=== PATIENT | female | born 1985 ===

== ENCOUNTER 2018-12-08 14:40 | Emergency (ER) | payer SELFPAY ==
[2018-12-08 14:42] VITALS: BMI 27.6
[2018-12-08 14:47] VITALS: RESP 18
[2018-12-08] MEDS ORDERED: Sodium Chloride 0.9% 1,000 ML IV STA (15:19)
--- NOTE | 2018-12-08 15:31 | ED PDOC ---
Arrival/HPI - General Historian: Patient - History of Present Illness Narrative History of Present Illness (Text): 12/08/18 15:47 33 y/o female with PMH of hysterectomy presents to the ED c/o left flank pain x 1 day. Pain is sharp and radiates into the left side of the abdomen. Associated nausea. Has not taken any medication for pain. Denies fever, chills, diarrhea, constipation, vomiting, chest pain, SOB, urinary symptoms, vaginal bleeding, vaginal discharge, or any other associated symptoms. <Ria Clark - Last Filed: 12/08/18 16:46> <Kit Dominguez - Last Filed: 12/09/18 07:53> - General Chief Complaint: Back Pain Time Seen by Provider: 12/08/18 14:57 Past Medical History - Infectious Disease Hx of Infectious Diseases: None - Psychiatric Hx Substance Use: No - Surgical History Hx Hysterectomy: Yes - Anesthesia Hx Anesthesia Reactions: No Hx Malignant Hyperthermia: No <Ria Clark - Last Filed: 12/08/18 16:46> Family/Social History Smoking Status: Never Smoked Hx Alcohol Use: Yes Frequency of alcohol use: Socially Hx Substance Use: No <Ria Clark - Last Filed: 12/08/18 16:46> Family/Social History: Unknown Family HX <Kit Dominguez - Last Filed: 12/09/18 07:53> Allergies/Home Meds <Ria Clark - Last Filed: 12/08/18 16:46> <Kit Dominguez - Last Filed: 12/09/18 07:53> Allergies/Adverse Reactions: Allergies No Known Allergies Allergy (Verified 12/08/18 14:42) Physical Exam Vital Signs Reviewed: Yes Vital Signs Temp Pulse Resp BP Pulse Ox 12/08/18 14:40 98 F 70 18 105/68 100 Temperature: Afebrile Blood Pressure: Normal Pulse: Regular Respiratory Rate: Normal Appearance: Positive for: Well-Appearing, Non-Toxic, Comfortable Pain Distress: None Mental Status: Positive for: Alert and Oriented X 3 - Systems Exam Head: Present: Atraumatic, Normocephalic Pupils: Present: PERRL Extroacular Muscles: Present: EOMI Conjunctiva: Present: Normal Mouth: Present: Moist Mucous Membranes Neck: Present: Normal Range of Motion. No: Meningeal Signs Respiratory/Chest: Present: Clear to Auscultation, Good Air Exchange. No: Respiratory Distress, Accessory Muscle Use Cardiovascular: Present: Regular Rate and Rhythm, Normal S1, S2, Peripheal Pulses Present Abdomen: Present: Tenderness (LLQ), Normal Bowel Sounds. No: Distention, Peritoneal Signs, Rebound, Guarding Back: Present: Normal Inspection, CVA Tenderness (left side) Upper Extremity: Present: Normal Inspection, Normal ROM, NORMAL PULSES, Neurovascularly Intact, Capillary Refill < 2s. No: Cyanosis, Edema, Temperature Abnormalties Lower Extremity: Present: Normal Inspection, NORMAL PULSES, Normal ROM, Neurovascularly Intact, Capillary Refill < 2 s. No: Edema, CALF TENDERNESS, Tenderness, Swelling, Temperature Abnormalties Neurological: Present: GCS=15, CN II-XII Intact, Speech Normal, Motor Func Grossly Intact, Normal Sensory Function, Gait Normal Skin: Present: Warm, Dry, Normal Color. No: Rashes Psychiatric: Present: Alert, Oriented x 3, Normal Insight, Normal Concentration, Normal Affect, Normal Mood <Ria Clark - Last Filed: 12/08/18 16:46> Vital Signs Temp Pulse Resp BP Pulse Ox 12/08/18 16:40 98.3 F 78 18 123/78 98 12/08/18 14:40 98 F 70 18 105/68 100 <Kit Dominguez - Last Filed: 12/09/18 07:53> Medical Decision Making ED Course and Treatment: Initial Plan: * CBC, CMP * Lipase * Coags * UA * CT Abd/Pelvis without IV contrast * IVF * Toradol * Zofran 16:20 On re-evaluation, patient reports improvement in pain with medication. 16:49 CT unremarkable. Patient reports complete resolution of pain. Advised gynecolo gical, GI, and PMD followup. - Lab Interpretations Lab Results: 12/08/18 15:15 12/08/18 15:15 Lab Results 12/08/18 15:15: Sodium 138, Potassium 3.7, Chloride 103, Carbon Dioxide 24, Anion Gap 15, BUN 9, Creatinine 0.6 L, Est GFR ( Amer) > 60, Est GFR (Non-Af Amer) > 60, Random Glucose 103, Calcium 9.2, Total Bilirubin 1.0, AST 33, ALT 19, Alkaline Phosphatase 62, Total Protein 7.9, Albumin 4.5, Globulin 3.4, Albumin/Globulin Ratio 1.3 12/08/18 15:15: Urine Color Light yellow, Urine Appearance Sl cloudy, Urine pH 8.5, Ur Specific [place] 1.015, Urine Protein 30 H, Urine Glucose (UA) Negative, Urine Ketones 15 H, Urine Blood Negative, Urine Nitrate Negative, Urine Bilirubin Negative, Urine Urobilinogen 1.0 H, Ur Leukocyte Esterase Negative, Urine RBC 1 - 3 H, Urine WBC 0 - 2, Ur Epithelial Cells 4 - 5, Amorphous Sediment Small, Urine Bacteria Large, Urine Other Uyeast, Urine HCG, Qual Negative 12/08/18 15:15: PT 12.4, INR 1.12, APTT 31.8 12/08/18 15:15: WBC 5.6, RBC 4.12, Hgb 12.3, Hct 37.7, MCV 91.5, MCH 29.9, MCHC 32.6, RDW 12.0, Plt Count 264, MPV 10.2, Neut % (Auto) 59.8, Lymph % (Auto) 32.4, [place] % (Auto) 5.2, Eos % (Auto) 2.2, Baso % (Auto) 0.4, Lymph # (Auto) 1.8, [place] # (Auto) 0.3, Eos # (Auto) 0.1, Baso # (Auto) 0.02, Absolute Neuts (auto) 3.33 I have reviewed the lab results: Yes - RAD Interpretation Narrative RAD Interpretations (Text): 12/08/18 16:46 CT Abd/Pelvis: FINDINGS: LOWER THORAX: Unremarkable. LIVER: Unremarkable. No gross lesion or ductal dilatation. GALLBLADDER AND BILE DUCTS: Unremarkable. PANCREAS: Unremarkable. No gross lesion or ductal dilatation. SPLEEN: Unremarkable. ADRENALS: Unremarkable. No mass. KIDNEYS AND URETERS: Unremarkable. No hydronephrosis. No solid mass. VASCULATURE: Unremarkable. No aortic aneurysm. No aortic atherosclerotic calcification or mural plaque present. BOWEL: Unremarkable. No obstruction. No gross mural thickening. APPENDIX: Unremarkable. Normal appendix. PERITONEUM: Unremarkable. No free fluid. No free air. LYMPH NODES: Unremarkable. No enlarged lymph nodes. BLADDER: Unremarkable. REPRODUCTIVE: Unremarkable. BONES: No acute fracture. OTHER FINDINGS: None. IMPRESSION: Unremarkable non contrast enhanced CT of the abdomen and pelvis. No evidence of urolithiasis. Radiology Orders: 12/08/18 15:18 ABD & PELVIS W/O PO OR IV CONT [CT] Stat Split [place] Department Supervisor: Radiologist - Medication Orders Current Medication Orders: Sodium Chloride (Sodium Chloride 0.9%) 1,000 mls @ 999 mls/hr IV .Q1H1M STA Stop: 12/08/18 16:19 Last Admin: 12/08/18 15:28 Dose: 999 mls/hr eMAR Start Stop Document 12/08/18 15:28 EWO (Rec: 12/08/18 15:28 [place] [id number]) Intravenous Solution Start Date 12/08/18 Start Time 15:28 End Date 12/08/18 End time 16:28 Total Infusion Time 60 Discontinued Medications Ketorolac Tromethamine (Toradol) 30 mg IVP STAT STA Stop: 12/08/18 15:19 Last Admin: 12/08/18 15:28 Dose: 30 mg MAR Pain Assessment Document 12/08/18 15:28 [facility] ([facility]08[facility]18 [facility] Pain Reassessment Is this a pain reassessment? No Presence of Pain Presence of Pain Yes Pain Scale Used Protocol: PSCALES Pain Scale Used Numeric Location Left, Right or Bilateral Left Description Description Constant IVP Administration Document 12/08/18 15:28 EWO (Rec: 12/08/18 15:29 [facility] Charges for Administration # of IVP Administrations 1 Ondansetron HCl (Zofran Inj) 4 mg IVP STAT STA Stop: 12/08/18 15:19 Last Admin: 12/08/18 15:28 Dose: 4 mg IVP Administration Document 12/08/18 15:28 EWO (Rec: 12/08/18 15:28 [facility] Charges for Administration # of IVP Administrations 1 <Ria Clark - Last Filed: 12/08/18 16:46> - Lab Interpretations Lab Results: PT 12.4 SECONDS (9.4-12.5) 12/08/18 15:15 INR 1.12 12/08/18 15:15 APTT 31.8 Seconds (26.9-38.3) 12/08/18 15:15 Total Bilirubin 1.0 mg/dL (0.2-1.3) 12/08/18 15:15 AST 33 U/L (14-36) 12/08/18 15:15 ALT 19 U/L (7-56) 12/08/18 15:15 Alkaline Phosphatase 62 U/L (38-126) 12/08/18 15:15 Total Protein 7.9 g/dL (5.8-8.3) 12/08/18 15:15 Albumin 4.5 g/dL (3.0-4.8) 12/08/18 15:15 Globulin 3.4 gm/dL 12/08/18 15:15 Albumin/Globulin Ratio 1.3 (1.1-1.8) 12/08/18 15:15 Urine Color Light yellow (YELLOW) 12/08/18 15:15 Urine Appearance Sl cloudy (CLEAR) 12/08/18 15:15 Urine pH 8.5 (4.7-8.0) 12/08/18 15:15 Ur Specific [place] 1.015 (1.005-1.035) 12/08/18 15:15 Urine Protein 30 mg/dL (<30 mg/dL) H 12/08/18 15:15 Urine Glucose (UA) Negative mg/dL (NEGATIVE) 12/08/18 15:15 Urine Ketones 15 mg/dL (NEGATIVE) H 12/08/18 15:15 Urine Blood Negative (NEGATIVE) 12/08/18 15:15 Urine Nitrate Negative (NEGATIVE) 12/08/18 15:15 Urine Bilirubin Negative (NEGATIVE) 12/08/18 15:15 Urine Urobilinogen 1.0 E.U./dL (<1 E.U./dL) H 12/08/18 15:15 Ur Leukocyte Esterase Negative [place]/uL (NEGATIVE) 12/08/18 15:15 Urine RBC 1 - 3 /hpf (0-2) H 12/08/18 15:15 Urine WBC 0 - 2 /hpf (0-6) 12/08/18 15:15 Ur Epithelial Cells 4 - 5 /hpf (0-5) 12/08/18 15:15 Amorphous Sediment Small /hpf (NONE) 12/08/18 15:15 Urine Bacteria Large /hpf (NONE) 12/08/18 15:15 Urine Other Uyeast /hpf 12/08/18 15:15 Urine HCG, Qual Negative (NEGATIVE) 12/08/18 15:15 Urine HCG, Qual Negative (NEGATIVE) 12/08/18 15:15 - RAD Interpretation Radiology Orders: 12/08/18 15:18 ABD & PELVIS W/O PO OR IV CONT [CT] Stat - Medication Orders Current Medication Orders: Discontinued Medications Sodium Chloride (Sodium Chloride 0.9%) 1,000 mls @ 999 mls/hr IV .Q1H1M STA Stop: 12/08/18 16:19 Last Admin: 12/08/18 15:28 Dose: 999 mls/hr eMAR Start Stop Document 12/08/18 15:28 EW (Rec: 12/08/18 15:28 [facility] Intravenous Solution Start Date 12/08/18 Start Time 15:28 End Date 12/08/18 End time 16:28 Total Infusion Time 60 Ketorolac Tromethamine (Toradol) 30 mg IVP STAT STA Stop: 12/08/18 15: Last Admin: 12/08/18 15:28 Dose: 30 mg MAR Pain Assessment Document 12/08/18 15:28 EW (Rec: 12/08/18 15:29 [facility] Pain Reassessment Is this a pain reassessment? No Presence of Pain Presence of Pain Yes Pain Scale Used Protocol: PSCALES Pain Scale Used Numeric Location Left, Right or Bilateral Left Description Description Constant IVP Administration Document 12/08/18 15:28 EW (Rec: 12/08/18 15:29 [email or web address]) Charges for Administration # of IVP Administrations 1 Ondansetron HCl (Zofran Inj) 4 mg IVP STAT STA Stop: 12/08/18 15:19 Last Admin: 12/08/18 15:28 Dose: 4 mg IVP Administration Document 12/08/18 15:28 EW (Rec: 12/08/18 15:28 [facility]) Charges for Administration # of IVP Administrations 1 <Kit Dominguez - Last Filed: 12/09/18 07:53> Disposition/Present on Arrival - Present on Arrival Any Indicators Present on Arrival: No History of DVT/PE: No History of Uncontrolled Diabetes: No Urinary Catheter: No History of Decub. Ulcer: No History Surgical Site Infection Following: None - Disposition Have Diagnosis and Disposition been Completed?: Yes Disposition Time: 16:51 Patient Plan: Discharge <Ria Clark - Last Filed: 12/08/18 16:46> <Kit Dominguez - Last Filed: 12/09/18 07:53> - Disposition Diagnosis: Flank pain Disposition: HOME/ ROUTINE Condition: IMPROVED Discharge Instructions (ExitCare): Flank Pain, Acute Abdomen (Belly Pain), Stomach Ache and Stomach Upset Print Language: GIBRALT[place] Additional Instructions: Ibuprofeno cada 8 horas segn sea necesario para el dolor, con alimentos. [place], no actividad vigorosa. Seguimiento con mdico primario en 2 grayson. Regrese a la tobi de emergencias con cualquier sntoma nuevo o que empeore. Prescriptions: Ibuprofen [Motrin Tab] 600 mg PO Q8 PRN #30 tab PRN Reason: Pain, Moderate (4-7) Referrals: [facility] [place] - Follow up with primary Shabana Gandara MD [Medical Doctor] - Follow up with primary Forms: WORK NOTE, [employer] ([employer]) (Kyrgyz)
[2018-12-08 15:35] LABS: BASO # 0.02 K/mm3 (0.0-2.0); BASO % 0.4 % (0.0-3.0); EOS # 0.1 (0.0-0.7); EOS % 2.2 % (1.5-5.0); HEMOGLOBIN 12.3 g/dL (12.0-16.0); LYMPH # 1.8 (1.2-3.4); LYMPH % 32.4 % (22.0-35.0); MEAN CELL VOLUME 91.5 fl (80.0-105.0); MEAN CORPUSCULAR HEMOGLOBIN 29.9 pg (25.0-35.0); MEAN CORPUSCULAR HGB CONC 32.6 g/dl (31.0-37.0); MEAN PLATELET VOLUME 10.2 fl (7.0-11.0); MONO # 0.3 (0.1-0.6); MONO % 5.2 % (1.0-6.0); RBC 4.12 10^6/uL (3.5-6.1); WHITE BLOOD COUNT 5.6 10^3/uL (4.5-11.0)
[2018-12-08 15:36] LABS: PH,URINE 8.5 (4.7-8.0); URINE BILIRUBIN NEGATIVE (NEGATIVE); URINE BLOOD NEGATIVE (NEGATIVE); URINE GLUCOSE (UA) NEGATIVE (NEGATIVE); URINE LEUKOCYTE ESTERASE NEGATIVE Leu/uL (NEGATIVE); URINE PROTEIN 30 mg/dL (<30 mg/dL)
[2018-12-08 15:45] LABS: URINE APPEARANCE SL CLOUDY (CLEAR); URINE COLOR LIGHT YELLOW (YELLOW)
[2018-12-08 15:46] LABS: ALB/GLOB RATIO 1.3 (1.1-1.8); ALBUMIN 4.5 g/dL (3.0-4.8); BLOOD UREA NITROGEN 9 mg/dL (7-21); CALCIUM 9.2 mg/dL (8.4-10.5); GFR NON-AFRICAN AMERICAN > 60; HCG,QUALITATIVE URINE NEGATIVE (NEGATIVE)
[2018-12-08 15:48] LABS: URINE BACTERIA LARGE /hpf; URINE WBC 0 - 2 /hpf (0-6)
[2018-12-08 15:49] LABS: URINE AMORPHOUS SEDIMENT SMALL /hpf
[2018-12-08 15:51] LABS: INR 1.12; PARTIAL THROMBOPLASTIN TIME 31.8 Seconds (26.9-38.3); PROTHROMBIN TIME 12.4 SECONDS (9.4-12.5)
[2018-12-08 15:56] LABS: ALT/SGPT 19 U/L (7-56); AST/SGOT 33 U/L (14-36)
--- NOTE | 2018-12-08 16:33 | CT ---
Date of service: 12/08/2018 PROCEDURE: CT Abdomen and Pelvis without intravenous contrast HISTORY: stone search, left COMPARISON: None. TECHNIQUE: Without contrast.. Contrast dose: Radiation dose: Total exam DLP = 447.74 mGy-cm. This CT exam was performed using one or more of the following dose reduction techniques: Automated exposure control, adjustment of the mA and/or kV according to patient size, and/or use of iterative reconstruction technique. FINDINGS: LOWER THORAX: Unremarkable. LIVER: Unremarkable. No gross lesion or ductal dilatation. GALLBLADDER AND BILE DUCTS: Unremarkable. PANCREAS: Unremarkable. No gross lesion or ductal dilatation. SPLEEN: Unremarkable. ADRENALS: Unremarkable. No mass. KIDNEYS AND URETERS: Unremarkable. No hydronephrosis. No solid mass. VASCULATURE: Unremarkable. No aortic aneurysm. No aortic atherosclerotic calcification or mural plaque present. BOWEL: Unremarkable. No obstruction. No gross mural thickening. APPENDIX: Unremarkable. Normal appendix. PERITONEUM: Unremarkable. No free fluid. No free air. LYMPH NODES: Unremarkable. No enlarged lymph nodes. BLADDER: Unremarkable. REPRODUCTIVE: Unremarkable. BONES: No acute fracture. OTHER FINDINGS: None. IMPRESSION: Unremarkable non contrast enhanced CT of the abdomen and pelvis. No evidence of urolithiasis.
[2018-12-08 17:04] VITALS: BP 123/78; PULSE 78; TEMP 98.3; O2SAT 98
== END 2018-12-08 17:04 | disposition home or self-care (01) ==
LOC: ED 14:40
DX: R10.9 Unspecified abdominal pain (principal)
CPT/HCPCS: 74176; 80053; 81001; 81025; 84703; 85025; 85610; 85730; 96361; 96374; 96375; 99283; J1885; J2405; J7030